=== PATIENT | female | born 1980 | race Caucasian/White ===

== ENCOUNTER 2018-07-04 08:55 | Emergency (ER) | payer OTHER ==
[2018-07-04] MEDS ORDERED: Phenazopyridine TAB* 100 MG PO ONE (09:16)
[2018-07-04] MEDS ORDERED: Ibuprofen TAB* 600 MG PO ONE (09:17)
[2018-07-04 09:42] LABS: Urine Appearance Cloudy; Urine Blood 3+ (Negative); Urine Color Yellow; Urine Ketones Trace (Negative); Urine Protein 1+(30 mg/dL) (Negative); Urine Red Blood Cell 3+(>10/hpf) (Absent); Urine Specific Gravity 1.026 (1.010-1.030); Urine Urobilinogen Negative (Negative); Urine White Blood Cell 3+(>20/hpf) (Absent)
[2018-07-04 10:39] VITALS: BP 134/77
--- NOTE | 2018-07-05 07:27 | ED ---
GI/ HPI - HPI Summary HPI Summary: Patient is a 38-year-old female who presents to presents emergency department for vaginal irritation and dysuria times several days. Patient states she gets frequent bacterial vaginitis and called her [facility] [employer]ELOPER a couple days ago and was started on Flagyl. Pt. states she started with dysuria and hematuria yesterday. She denies fever, N/V, flank pain. History of tubal ligation. Denies past medical hx. Pt. denies concern for STIs. Symptoms are mild in severity. Urinating makes sxs worse. Nothing makes sxs better. - History of Current Complaint Chief Complaint: EDUrogenitalProblems Time Seen by Provider: 07/04/18 09:08 Stated Complaint: GENITAL BURNING Hx Obtained From: Patient Pain Intensity: 0 - Allergy/Home Medications Allergies/Adverse Reactions: Allergies Allergy/AdvReac Type Severity Reaction Status Date / Time aripiprazole [From Abilify] Allergy Eyes Verified 07/04/18 09:02 Itchy/Swollen/Red/Watery Penicillins Allergy Rash Verified 07/04/18 09:02 PMH/Surg Hx/FS Hx/Imm Hx Previously Healthy: Yes Infectious Disease History: No Infectious Disease History: Denies: Traveled Outside the [place] in Last 30 Days - Social History Occupation: Works From/At Home Lives: With Family Alcohol Use: None Substance Use Type: Reports: None Smoking Status (MU): Never Smoked Tobacco Review of Systems Constitutional: Negative Negative: Fever, Chills Gastrointestinal: Negative Negative: Abdominal Pain, Vomiting, Nausea Positive: dysuria, hematuria, other - Vaginal irritation.. Negative: flank pain Neurological: Negative All Other Systems Reviewed And Are Negative: Yes Physical Exam Triage Information Reviewed: Yes Vital Signs On Initial Exam: Initial Vitals Temp Pulse Resp BP Pulse Ox 97 F 86 16 142/82 99 07/04/18 08:57 07/04/18 08:57 07/04/18 08:57 07/04/18 08:57 07/04/18 08:57 Vital Signs Reviewed: Yes Appearance: Positive: Well-Appearing - Pt. sitting on bed in NAD. Skin: Positive: Warm, Dry Head/Face: Positive: Normal Head/Face Inspection Eyes: Positive: Normal, EOMI Neck: Positive: Supple Respiratory/Lung Sounds: Positive: Clear to Auscultation, Breath Sounds Present Cardiovascular: Positive: Normal, RRR Abdomen Description: Positive: Nontender, Soft Pelvic Exam: Positive: Other - Exam performed with tech in room, Rehana. External genitalia is unremarkable. Speculum exam is unremarkable for discharge , bleeding, or lesions. Neurological: Positive: Normal, CN Intact II-III Psychiatric: Positive: Affect/Mood Appropriate Diagnostics - Vital Signs Vital Signs Temp Pulse Resp BP Pulse Ox 07/04/18 10:39 98.3 F 83 16 134/77 99 07/04/18 08:57 97 F 86 16 142/82 99 - Laboratory Lab Results: Lab Results 07/04/18 Range/Units 09:28 Urine Color Yellow Urine Appearance Cloudy Urine pH 5.0 (5-9) Ur Specific [place] 1.026 (1.010-1.030) Urine Protein 1+(30 mg/dl) A (Negative) Urine Ketones Trace A (Negative) Urine Blood 3+ A (Negative) Urine Nitrate Negative (Negative) Urine Bilirubin Negative (Negative) Urine Urobilinogen Negative (Negative) Ur Leukocyte Esterase 3+ A (Negative) Urine WBC (Auto) 3+(>20/hpf) A (Absent) Urine RBC (Auto) 3+(>10/hpf) A (Absent) Ur Squamous Epith Cells Present A (Absent) Urine Bacteria Absent (Absent) Urine Glucose Negative (Negative) Lab Statement: Any lab studies that have been ordered have been reviewed, and results considered in the medical decision making process. GIGU Course/Dx - Course Course Of Treatment: Pt. presenting with vaginal irritation and dysuria and hematuria. She has no flank pain or history of kidney stones. She is afebrile. She has a benign abdominal exam. Pelvic exam is unremarkable, cultures were obtained. Urinalysis is contaminated but does have RBCs and leukocytes. Given hematuria and dysuria will treat for suspected UTI with Keflex based on previous culture. Denies patient to continue Flagyl. To call her [facility] service center director for close follow-up appointment. Peridium also prescribed. To increase fluids. Will return to ER if symptoms change or worsen. Patient understands and agrees with plan. - Diagnoses Differential Diagnoses - Female: Pyelonephritis, Renal Calculi, STD, Urinary Tract Infection, Vaginitis Provider Diagnoses: UTI (urinary tract infection) Discharge - Sign-Out/Discharge Documenting (check all that apply): Patient Departure - Discharge Plan Condition: Good Disposition: HOME Prescriptions: Cephalexin CAP* [Keflex CAP*] 500 mg PO BID #20 cap Phenazopyridine TAB* [Pyridium 100 mg TAB*] 100 mg PO TID #9 tab Patient Education Materials: Urinary Tract Infection in Women (ED) Referrals: Devante Eckert MD [Primary Care Provider] - Additional Instructions: Follow up with your [facility] [employer]OPER Take medication as directed Can continue flagyl as directed Ibuprofen for pain as directed Return to ER if symptoms change or worsen - Billing Disposition and Condition Condition: GOOD Disposition: Home
== END 2018-07-04 10:39 | disposition home or self-care (01) ==
LOC: ED 08:55
DX: N39.0 Urinary tract infection, site not specified (principal); R30.0 Dysuria
CPT/HCPCS: 81003; 81015; 87086; 87480; 87491; 87510; 87591; 87661; 99282; A9270-GY

== ENCOUNTER 2018-07-31 10:07 | Emergency (ER) | payer OTHER ==
[2018-07-31] MEDS ORDERED: Albuterol/Ipratropium NEB.SOL* Albuterol 2.5 MG/Ipratropium 0.5 MG 3 ML INH ONE ×2 (11:34→13:08)
[2018-07-31] MEDS ORDERED: Azithromycin TAB* 250 MG PO ONE (11:34)
[2018-07-31] MEDS ORDERED: predniSONE TAB* 20 MG PO ONE (11:34)
--- NOTE | 2018-07-31 12:45 | ED ---
Shortness of Breath - HPI Summary HPI Summary: Patient is a 38 y/o F w/ c/o cough, congestion and ear pressure for the past five days, SOB and wheezing onsetting two days ago. She denies Hx of asthma, bronchitis. Patient states that she does not smoke. She reports that she took sudafed and mucinex which provided slight relief in Sx. She also endorses fever , diaphoresis, and body aches. However, she notes PMHx of fibromyalgia. Patient is on tramadol, notes PMHx of depression. SI is denied. PSHx of tubal ligation. She denies smoking. Patient reports bacterial vaginosis as well, requests OBGYN referral. She reports flare-up of this condition. Chills, erythema of eyes, sore throat, chest pain, abdominal pain, vomiting, nausea, dysuria, hematuria, myalgia, edema, rash and dizziness are not reported. On triage, pain is rated 5/10, nothing is noted to aggravate/ alleviate Sx. Home medications and allergies are reviewed. - History of Current Complaint Chief Complaint: EDShortnessOfBreath Time Seen by Provider: 07/31/18 10:21 Hx Obtained From: Patient Onset/Duration: Lasting Days - cough, congestion and ear pressure for the past five days, SOB and wheezing onsetting two days ago, Still Present Timing: Constant Current Severity: Moderate - 5/10 Alleviating Factors: Nothing Associated Signs & Symptoms: Wheezing, Fever - Allergy/Home Medications Allergies/Adverse Reactions: Allergies Allergy/AdvReac Type Severity Reaction Status Date / Time aripiprazole [From Liz] Allergy Eyes Verified 07/04/18 09:02 Itchy/Swollen/Red/Watery Penicillins Allergy Rash Verified 07/04/18 09:02 Home Medications: Home Medications traMADol TAB* [Ultram*] 50 - 100 mg PO Q6HR PRN 07/31/18 [History Confirmed ] PMH/Surg Hx/FS Hx/Imm Hx Respiratory History: Reports: Hx Asthma - as a kid - outgrown Denies: Hx Chronic Bronchitis, Hx Chronic Obstructive Pulmonary Disease (COPD ) Musculoskeletal History: Reports: Hx Fibromyalgia Psychiatric History: Reports: Hx Depression Infectious Disease History: No Infectious Disease History: Denies: Traveled Outside the [place] in Last 30 Days - Family History Known Family History: Negative: Blood Disorder - Social History Alcohol Use: None Substance Use Type: Reports: Prescribed Substance Use Comment - Amount & Last Used: tramadol Smoking Status (MU): Never Smoked Tobacco Review of Systems Positive: Fever, Skin Diaphoresis. Negative: Chills Negative: Erythema Positive: Other - POSITIVE - PRESSURE AT EARS, CONGESTION . Negative: Sore Throat Negative: Chest Pain Positive: Shortness Of Breath, Cough, Other - POSITIVE - WHEEZING Negative: Abdominal Pain, Vomiting, Nausea Negative: dysuria, hematuria Positive: Myalgia. Negative: Edema Negative: Rash Neurological: Other - NEGATIVE - DIZZINESS Positive: Depressed, Other - NO SI All Other Systems Reviewed And Are Negative: Yes Physical Exam - Summary Physical Exam Summary: Constitutional: Well-developed, Well-nourished, Alert. (-) Distressed Skin: Warm, Dry HENT: Normocephalic; Atraumatic Eyes: Conjunctiva normal Neck: Musculoskeletal ROM normal neck. (-) JVD, (-) Stridor, (-) Tracheal deviation Cardio: Rhythm regular, rate normal, Heart sounds normal; Intact distal pulses; The pedal pulses are 2+ and symmetric. Radial pulses are 2+ and symmetric. (-) Murmur Pulmonary/Chest wall: Effort normal. (-) Respiratory distress, (+) Diffuse wheezing bilaterally, (-) Rales Abd: Soft, (-) epigastric tenderness, (-) Distension, (-) Guarding, (-) Rebound Musculoskeletal: (-) Edema Lymph: (-) Cervical adenopathy Neuro: Alert, Oriented x3 Psych: Mood and affect Normal Triage Information Reviewed: Yes Vital Signs On Initial Exam: Initial Vitals Temp Pulse Resp BP Pulse Ox 98.2 F 74 20 142/88 96 07/31/18 10:08 07/31/18 10:08 07/31/18 10:08 07/31/18 10:08 07/31/18 10:08 Vital Signs Reviewed: Yes Diagnostics - Vital Signs Vital Signs Temp Pulse Resp BP Pulse Ox 07/31/18 11:45 69 20 98 07/31/18 10:08 98.2 F 74 20 142/88 96 - Laboratory Lab Results: Lab Results 07/31/18 Range/Units 11:13 Influenza A (Rapid) Negative (Negative) Influenza B (Rapid) Negative (Negative) Lab Statement: Any lab studies that have been ordered have been reviewed, and results considered in the medical decision making process. - Radiology CXR Radiology Interpretation Completed By: Radiologist Summary of Radiographic Findings: CXR IMPRESSION: NO EVIDENCE FOR ACTIVE CARDIOPULMONARY DISEASE. THIS REPORT WAS REVIEWED BY ED PHYSICIAN. Re-Evaluation - Re-Evaluation First Eval Re-Evaluation Time: 13:15 Comment: Results of CXR and influenza test were discussed, patient will follow up with PCP as well as OBGYN. Patient is agreeable with this plan. Course/Dx - Course Course Of Treatment: Patient is a 38 y/o F w/ c/o cough, congestion and ear pressure for the past five days, SOB and wheezing onsetting two days ago. She denies Hx of asthma, bronchitis. Patient states that she does not smoke. She reports that she took sudafed and mucinex which provided slight relief in Sx. She also endorses fever, diaphoresis, and body aches. However, she notes PMHx of fibromyalgia. Patient is on tramadol, notes PMHx of depression. SI is denied. PSHx of tubal ligation. She denies smoking. Patient reports bacterial vaginosis as well, requests OBGYN referral. She reports flare-up of this condition. On physical exam, patient is noted to have diffuse wheezing bilaterally. CXR IMPRESSION: NO EVIDENCE FOR ACTIVE CARDIOPULMONARY DISEASE. Patient was negative for influenza A,B. During ED course, patient received deltasone 60 mg PO ED ONCE ONE, Zithromax 500 mg PO ED ONCE ONE, Duoneb x 2. Results of CXR and influenza test were discussed, patient will follow up with PCP as well as OBGYN. Patient is agreeable with this plan. - Diagnoses Provider Diagnoses: Bronchitis, Bacterial vaginosis Discharge - Sign-Out/Discharge Documenting (check all that apply): Patient Departure - discharge - Discharge Plan Condition: Stable Disposition: HOME Prescriptions: Albuterol HFA INHALER* [Ventolin HFA Inhaler*] 1 - 2 puff INH Q4H PRN #1 mdi PRN Reason: Wheezing Azithromycin TAB* [Zithromax TAB (Z-LINDA) 250 mg #6 tabs] 2 tab PO .TODAY, THEN 1 DAILY #1 linda Fluconazole 100 MG TAB* [Diflucan 100 MG TAB*] 150 mg PO DAILY #7.5 tab metroNIDAZOLE * 500 mg PO Q8H #15 tablet predniSONE TAB* [Deltasone TAB*] 50 mg PO DAILY #4 tab Patient Education Materials: Bacterial Vaginosis (ED), Acute Bronchitis (ED) Referrals: Hank Gonzalez MD [Medical Doctor] - 3 Days Devante Eckert MD [Primary Care Provider] - 3 Days Additional Instructions: RETURN TO ED FOR ANY NEW OR WORSENING SYMPTOMS. - Attestation Statements Document Initiated by Scribe: Yes Documenting Scribe: SHANNON SLOAN Provider For Whom Scribe is Documenting (Include Credential): RAIN FLORES MD Scribe Attestation: I, SHANNON SLOAN , scribed for RAIN FLORES MD on 07/31/18 at 1430. Status of Scribe Document: Ready
[2018-07-31 13:53] VITALS: BP 130/70
== END 2018-07-31 13:52 | disposition home or self-care (01) ==
LOC: ED 10:07
DX: J40 Bronchitis, not specified as acute or chronic (principal); N76.0 Acute vaginitis; Z88.0 Allergy status to penicillin; Z88.8 Allergy status to other drugs, medicaments and biological substances
CPT/HCPCS: 71046; 99282; A9270-GY; J7512